=== PATIENT | male | born 1970 | race Caucasian/White ===

== ENCOUNTER → 2016-11-05 | Outpatient (CLI) | payer OTHER ==
[~2016-11-05] MED LIST: FLEXERIL10 MG PO; IRON SUPPLEMENT PO; KEFLEX500 M1 PO; OMEPRAZOLE40 M1 PO; RANITIDINE HCL300 MG PO; REQUIP1 MG PO
--- NOTE | ~2016-11-05 | MR104 ---
[facility] A Service of [facility] RADIOLOGY TEXT RESULTS PATIENT: NAYELI CLEMENTE LOCATION: [facility] : 74 UNIT #: [id number] AGE: [address]: Catrachito Christiansen MD SEX: M ORDER DR: [id number] [facility]. [place], [place] [address] [id number] O MR#: [id number] Acc #: [id number] NAME: NAYELI CLEMENTE : 1970 SEX: M STUDY DATE/TIME: 11/05/2016 9:28 UNIT: [facility] ROOM: STUDY DESCRIPTION: MR Knee Wo Contrast Rt Attending Physician: Catrachito Christiansen M.D. Referring Physician: Catrachito Christiansen M.D. Ordering Physician: Catrachito Christiansen M.D. Primary Care Physician: Rj Weiss D.O. MRI CENTER REPORT This report is preliminary unless electronic signature is present. EXAM Right knee MRI without contrast 11/05/2016 HISTORY 46-year-old male with right knee pain since September of 2009. Patient states hyperextension injury of knee 7-8 years ago. No prior right knee surgery. COMPARISON Right knee MRI from [facility] 11/06/2009. (Images only, no report available). TECHNIQUE Routine unenhanced multiplanar, multisequence high field MR imaging of the right knee was performed. FINDINGS There is intrameniscal signal in the posterior horn and posterior body segment of the medial meniscus which does not clearly contact the articular surface. This is somewhat similar in appearance to the patient's prior examination. No clear evidence of a displaced medial meniscus tear. The lateral meniscus is intact. Cruciate and collateral ligaments are intact. Extensor mechanism is intact. No joint effusion. No popliteal cyst. 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 Lateral compartment articular cartilage is intact. Medial compartment articular cartilage is intact. 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 This is unchanged from prior examination and of doubtful clinical significance. Bone marrow signal is otherwise within normal limits. Visualized musculature is unremarkable. IMPRESSION 1. Persistent intrameniscal signal in the posterior horn and posterior body segment of the medial meniscus, which does not clearly contact or disrupt the articular surface and does not meet MR criteria for a meniscus tear. This is similar in appearance to the patient's prior examination from 2009. No evidence of a lateral meniscus tear. 2. No acute ligament injury. 3. 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 Dictated by... Nayeli Barton M.D. THIS IS AN ELECTRONICALLY VERIFIED REPORT Nayeli Barton M.D. at 11/06/2016 3:43 PM LISA/shaheen TD: 11/06/2016 11:51 JOB #: [id number] MRI CENTER REPORT Page 1 of 1 COPY
== END | disposition home or self-care (01) ==
LOC: CMRI 08:38
DX: M25.561 Pain in right knee (principal); M25.461 Effusion, right knee; M22.41 Chondromalacia patellae, right knee
CPT/HCPCS: 73721